=== PATIENT | male | born 1945 | race Caucasian/White ===

== ENCOUNTER 2020-08-26 10:09 | Inpatient (IN) | payer OTHER ==
[~2020-08-26] VITALS: Ht 193 cm; Wt 84.1 kg
[2020-08-26] VITALS (7 sets, daily range): BP systolic 122–157; BP diastolic 59–79; BMI 22.5
[~2020-08-26 10:09] MED LIST: ELIQUIS5 MG PO; MULTIPLE VITAMI1 TA1 PO
[2020-08-26] MEDS ORDERED: AMOXICILLIN500 M1 PO (10:14)
[2020-08-26 10:42] LABS: INR 1.01 (0.85-1.17); PROTIME 12.3 SECONDS (11.6-15.0)
[2020-08-26 10:52] LABS: CALC OSMOLALITY 279 mosm/kg (275-300); CALCIUM 8.9 mg/dL (8.5-10.1); CARBON DIOXIDE 30.4 mmol/L (21.0-32.0); CHLORIDE - SERUM 104 mmol/L (98-107); CREATININE - SERUM 1.2 mg/dL (0.6-1.3); GLUCOSE 94 mg/dL (74-106); POTASSIUM - SERUM 4.8 mmol/L (3.5-5.1); SODIUM 140 mmol/L (136-145); UREA NITROGEN 16 mg/dL (7-18); eGFR NON AFRICAN AMERICAN 63 mL/min (90-120)
[2020-08-26 11:03] LABS: BASOPHILS 0.3 % (0-2); EOSINOPHILS 6.3 % (0-7); HEMATOCRIT 43.7 % (42.0-54.0); HEMOGLOBIN 14.8 g/dL (13.5-17.5); LYMPHOCYTE ABS# 1.88 10x3/uL (1.32-3.57); MCH 33.4 pg (26.0-34.0); MCHC 33.9 g/dL (31.0-37.0); MCV 98.6 fL (80.0-100.0); MEAN PLATELET VOLUME 10.4 fL (7.4-10.4); NEUTROPHIL ABS# 3.53 10x3/uL (1.78-5.38); NEUTROPHILS 54.4 % (40-80); PLATELET COUNT 175 10x3/uL (130-400); RBC 4.43 10x6/uL (4.20-6.10); RDW 12.8 % (11.5-14.5); WBC 6.5 10x3/uL (4.8-10.8)
[2020-08-26 11:08] LABS: ALBUMIN 3.8 g/dL (3.4-5.0); ALKALINE PHOSPHATASE 92 U/L (30-120); ALT (SGPT) 24 U/L (10-68); BILIRUBIN - TOTAL 0.57 mg/dL (0.2-1.3); CKMB 1.1 U/L (0.0-3.6); CREATINE KINASE 105 UL (21-232); MAGNESIUM - SERUM 1.9 mg/dL (1.8-2.4); PROTEIN - SERUM 7.2 g/dL (6.4-8.2); THYROID STIMULATING HORMONE 1.83 uIU/mL (0.36-3.74); TROPONIN-I < 0.017 ng/mL (0.000-0.060)
--- NOTE | 2020-08-26 14:04 | NUR ---
Arrived to unit from CT in stable condition via stretcher, oriented to unit, oriented to room, oriented to bed controls, currently lying in bed, awake/alert/oriented, T/R self ad ledy, cont of B/B with BRPs per self ad ledy, denies pain/other discomfort at this time, spouse at bedside, call light/phone/water within reach, no s/s of acute distress observed.
--- NOTE | 2020-08-26 14:55 | NUR ---
Called and notified Dr. Flores of consult, states will see after office closes today.
--- NOTE | 2020-08-26 19:30 | NUR ---
PT IN BED, AAO X 4, RESP EVEN AND UNLABORED, NO DISTRESS NOTED, CL IN REACH, SR UP X 2.
--- NOTE | 2020-08-27 03:41 | NUR ---
I have reviewed this patient and I concur with the Shift Assessment completed by the Licensed Practical Nurse today this shift.
[2020-08-27 06:22] LABS: APTT 28.3 SECONDS (22.8-39.4)
[2020-08-27 06:33] LABS: BASOPHILS 0.2 % (0-2); EOSINOPHILS 8.6 % (0-7); HEMATOCRIT 40.1 % (42.0-54.0); HEMOGLOBIN 13.5 g/dL (13.5-17.5); IMMATURE GRANULOCYTES 0.2 % (0-5); LYMPHOCYTE ABS# 1.26 10x3/uL (1.32-3.57); MCH 33.1 pg (26.0-34.0); MCHC 33.7 g/dL (31.0-37.0); MCV 98.3 fL (80.0-100.0); MEAN PLATELET VOLUME 10.6 fL (7.4-10.4); MONOCYTES 11.8 % (2-11); NEUTROPHIL ABS# 2.89 10x3/uL (1.78-5.38); NEUTROPHILS 55.2 % (40-80); PLATELET COUNT 170 10x3/uL (130-400); RBC 4.08 10x6/uL (4.20-6.10); RDW 12.7 % (11.5-14.5); WBC 5.2 10x3/uL (4.8-10.8)
[2020-08-27 06:46] LABS: ALBUMIN 3.1 g/dL (3.4-5.0); ANION GAP 13.6 mmol/L (8-16); BILIRUBIN - TOTAL 0.79 mg/dL (0.2-1.3); CALCIUM 8.1 mg/dL (8.5-10.1); CARBON DIOXIDE 25.3 mmol/L (21.0-32.0); CREATININE - SERUM 1.1 mg/dL (0.6-1.3); PROTEIN - SERUM 6.2 g/dL (6.4-8.2)
[2020-08-27 06:49] LABS: POTASSIUM - SERUM 3.9 mmol/L (3.5-5.1)
[2020-08-27 07:24] LABS: INR 1.16 (0.85-1.17); PROTIME 13.8 SECONDS (11.6-15.0)
--- NOTE | 2020-08-27 07:40 | NUR ---
Lying in bed, awake/alert/oriented, T/R self ad ledy, cont of B/B with BRPs per self ad ledy, denies pain/other discomfort at this time, call light/phone within reach, remains NPO for procedure, no s/s of acute distress observed.
[2020-08-27 08:25] VITALS: BP 139/67
[2020-08-27 12:23] VITALS: BP 140/68
--- NOTE | 2020-08-27 14:15 | EC ---
PATIENT:DENIS HERMOSILLO DATE OF SERVICE: 08/26/20 SEX: M MEDICAL RECORD: [id number] DATE OF : 41 LOCATION:D.M2 D.211 AGE OF PATIENT: 74 ADMISSION DATE: 08/26/20 REFERRING PHYSICIAN: INTERPRETING PHYSICIAN: MIGUEL HARRINGTON MD ECHOCARDIOGRAM REPORT ECHO CHARGES 4 ECHO COMPLETE Date: 08/27/20 CLINICAL DIAGNOSIS: TIA ECHOCARDIOGRAPHIC MEASUREMENTS (adult normal given) AC root (d.<3.7cm) 3.2 cm LV Septum d (<1.2 cm> 0.9 cm Valve Excursion 1.9 cm LV Septum (systole) 1.5 cm Left Atria (s.<4.0cm> 4.5 cm LVPW d(<1.2cm) 1.0 cm RV (d.<2.3cm) 3.2 cm LVPW (sytole) 1.3 cm LV diastole(<5.6CM) 5.5 cm MV E-F(>70mm/sec) cm LV systole 3.7 cm LVOT Diameter 1.9 cm MV exc.(>10mm) 2.0 cm Est.ejection fraction (50-75%) % DOPPLER: LVIT cm/sec A 67 cm/sec E 54 cm/sec LA cm/sec RVSP 34 mmHg LVOT 87 cm/sec AOP1/2T m/s Asc. Ao 13.0 cm/sec RVOT 49 cm/sec RA cm/sec PA 91 cm/sec AV Gradient Peak 6.8 mmHg AV Mean 3.6 mmHg AV Area 1.9 cm MV Gradient Peak 2.4 mmHg MV Mean 1.3 mmHg MV Area cm COMMENTS: Vacuum Frame Operator: Lissa ROSA Cook Vegetable: 3 Dr. Littlejohn TAPE# Pericardial Effusion N DATE OF SERVICE: Adequate 2D, color flow imaging, spectral Doppler, and M-Mode. FINDINGS: No LVH. LV internal dimension is normal. Wall motion is normal. EF is greater than or equal to 55%. Aortic valve is tricuspid. No evidence of stenosis by Doppler interrogation. There is mild AI by color flow imaging. Left atrium is dilated at 4.5 cm. Mitral valve shows no prolapse. Trace MR. Right side is grossly normal. Mild TR. ECHOCARDIOGRAM REPORT [id number] DENIS HERMOSILLO TRANSINT:[id number] Voice Confirmation ID: [id number] DOCUMENT ID: [id number] MIGUEL HARRINGTON MD at 1415 CC: [id number] DICTATION DATE: 08/27/20 1251 DRAFTER HEATING AND VENTILATING: 08/27/20 1327 ADM IN [facility] [address] [id number]
[2020-08-27 20:00] VITALS: BP 114/61
[2020-08-27 23:49] VITALS: BP 113/55
[2020-08-28 04:53] VITALS: BP 114/62
--- NOTE | 2020-08-28 06:11 | NUR ---
PTS HEART RATE WENT LOW AT 41 DURING THE NIGHT WHILE HE WAS SLEEPING. NO S/S OF DISTRESS. REMAINED SINUS RHYTHM PER TELEMTRY TECH. DENIES NEEDS. NO WEAKNESS OR DROOPING OBSERVED. CL IN REACH.
--- NOTE | 2020-08-28 07:40 | NUR ---
Lying in bed, awake/alert/oriented, T/R self ad ledy, cont of B/B with BRPs per self ad ledy, denies pain/other discomfort at this time, call light/phone/water within reach, no s/s of acute distress observed.
[2020-08-28 08:03] VITALS: BP 121/58
--- NOTE | 2020-08-28 09:03 | HP ---
PATIENT: DENIS HERMOSILLOTON MEDICAL RECORD: [id number] ACCOUNT: [id number] LOCATION:D.[facility].2116 : 41 ADMISSION DATE: 08/27/20 PCP: No PCP HISTORY AND PHYSICAL EXAMINATION DATE OF ADMISSION: 08/26/2020. CHIEF COMPLAINT: Transient dysarthria. HISTORY OF PRESENT ILLNESS: This is a 74-year-old quite healthy male who was talking on the phone this morning at his home when his was in another room and heard his voice change. She noted that he had slurred speech and had garbled speech. The person he was talking to did not understand what he was saying. He also noted some left arm numbness and tingling without weakness. The states this all lasted less than 5 minutes and his symptoms resolved. She went ahead and brought him to the ER where lab work was essentially unremarkable. 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 Further workup included MRI of the brain without contrast showing a small subacute infarct in the left parietal and temporal lobes and mxujfrww-hl-oovmvlv infarct in the right temporal lobe. There was no hemorrhage. He is admitted for further evaluation of his strokes. PAST MEDICAL HISTORY: In January 2016, he had a right lower extremity DVT and PE, which was treated and resolved. PAST SURGICAL HISTORY: Arm surgery. The patient just had a Medicare wellness done in my office on 08/18/2020 and his total cholesterol then was 165, his LDL was 113, HDL was 43 and triglycerides were 98. HOME MEDICATIONS: Meclizine p.r.n., multivitamin once a day. DRUG ALLERGIES: None. HABITS: Never smoked. No alcohol or drugs. FAMILY HISTORY: Father at 86. He had colon cancer. Mother is as well. REVIEW OF SYSTEMS: GENERAL: No major weight changes. HEENT: No particular sinus or allergy problems. RESPIRATORY: No history of asthma, emphysema, cough, wheeze, shortness of breath. He had a PE 4-1/2 years ago. CARDIAC: No trouble there. GASTROINTESTINAL: No diarrhea, constipation, heartburn. GENITOURINARY: He has a history of elevated PSA, followed by Urology. MUSCULOSKELETAL: No significant arthritic aches and pains. NEUROLOGIC: No history of seizures. No symptoms of previous strokes. No headaches. PSYCHIATRIC: Denies depression or melancholia. PHYSICAL EXAMINATION: VITAL SIGNS: Temperature 97.2, pulse 57, respirations 16, blood pressure HISTORY AND PHYSICAL [id number] DENIS HERMOSILLO 122/74, O2 sat 97%. GENERAL: He is awake and alert. He does not appear to be in acute distress. SKIN: Warm and dry. HEENT: Grossly within normal limits. NECK: Supple. No JVD or bruit. HEART: Regular rate and rhythm without murmur. LUNGS: Clear. ABDOMEN: Soft, flat, nontender. EXTREMITIES: No edema. NEUROLOGIC: Intact. No focal motor or sensory deficits noted at this time. LABORATORY DATA: CBC with a white count of 6500, hemoglobin 14.8, hematocrit 43.7, platelets number 175,000. Basic metabolic panel, sodium 140, potassium 4.8, chloride 104, CO2 of 30.4, BUN 16, creatinine 1.2, glucose 94, calcium 8.9. Liver functions are all normal. INR 1.01. Magnesium 1.9. Troponin less than 0.017. TSH 1.83. Chest x-ray shows no acute abnormality. 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 MRI of the brain shows small subacute infarction in the left parietal and temporal lobes. There was a gyszlpkj-ts-ygzjwed infarct in the right temporal lobe. No hemorrhage. ASSESSMENT: 1. Transient dysarthria and left arm tingling. 2. Embolic stroke. PLAN: CTA has been ordered. Echocardiogram has been ordered. Dr. Flores has been consulted. We will place him on telemetry. Other tests or procedures as warranted. TRANSINT:[id number] Voice Confirmation ID: [id number] DOCUMENT ID: [id number] HIREN DICK MD at 0903 CC: [id number] DICTATION DATE: 08/26/202141 INJECTION MOLDING MACHINE SETTER: 08/27/20 0015 ADM IN [place] [address] [id number] [place] [id number]
[2020-08-28 09:43] VITALS: Ht 193 cm; Wt 84.1 kg
[2020-08-28 12:01] VITALS: BP 131/56
--- NOTE | 2020-08-28 13:48 | NUR ---
IN PATIENT CHART HELPING WITH DISCHARGE.
[2020-08-28] MEDS ORDERED: BAYER CHEWABLE81 MG PO (15:10)
[2020-08-28] MEDS ORDERED: PLAVIX75 MG PO (15:10)
[2020-08-28] MEDS ORDERED: ELIQUIS5 MG PO (15:13)
--- NOTE | 2020-08-28 15:30 | NUR ---
Provided discharge instructions/education to which pt and spouse voiced understanding, discontinued IV access/cardiac telemetry monitoring.
--- NOTE | 2020-08-28 15:50 | NUR ---
Discharged home to self care in stable condition via ambulation accompanied by spouse, no s/s of acute distress observed.
--- NOTE | 2020-08-30 17:22 | MORECARE ---
CASE MANAGEMENT DISCHARGE SUMMARY PATIENT: DENIS HERMOSILLO UNIT: [id number] ADM DATE: 08/27/20 AGE: 74 : 43 SEX: M ROOM/BED: D.[facility] AUTHOR: ALEJANDRO,DOC PHYSICIAN: REFERRING PHYSICIAN: HIREN DICK MD DATE OF SERVICE: 08/30/20 Case Management Discharge Planning Summary DCP REVIEW SUMMARY ANTICIPATED D/C DATE: EXPECTED LOS : 0 CASE STATUS: DCP Complete INITIAL REVIEW: 08/30/2020 INITIAL REVIEWER: Abbie Whitney FINAL DISCHARGE DISPOSITION: 01 : Home or Self Care (Routine Discharge) FINAL REVIEWER: Abbie Whitney FINAL REVIEW DATE: 08/30/2020 DCP Focus Questions & Answers QUESTION: ANSWER : PATIENT: DENIS HERMOSILLO ENCOUNTER: [id number] MEDICAL RECORD#: [id number] ADMISSION DATE: 08/27/2020 DISCHARGE DATE: 08/28/2020 ATTENDING MD: HIREN MANNING : AGE: 74 MARITAL STATUS: M DC PLAN ID: [id number] FACILITY: [facility] PRINTED ON: 08/30/20 17:22 CT All edits/amendments must be made on the electronic document DICTATION DATE: 08/30/201721 TRACK SURFACING MACHINE OPERATOR: PASCUAL 08/30/201721 RPT#: [id number] DC DATE:08/28/20 STATUS: DIS IN [facility] [address] [place] [address] END OF REPORT
== END 2020-08-28 15:50 | disposition home or self-care (01) | DRG 65 ==
LOC: D.ER 10:09 → D.M2 11:35 → OBSVTIME 11:35 → D.M2 11:35
PROVIDERS: Family Medicine; ADMIT Family Medicine; ATTEND Family Medicine
DX: I63.40 Cerebral infarction due to embolism of unspecified cerebral artery (principal); G45.9 Transient cerebral ischemic attack, unspecified; I69.322 Dysarthria following cerebral infarction; Z86.718 Personal history of other venous thrombosis and embolism; Z79.01 Long term (current) use of anticoagulants; Z86.711 Personal history of pulmonary embolism

== ENCOUNTER 2020-09-03 12:05 | Day surgery (SDC) | payer OTHER ==
[~2020-09-03] VITALS: Ht 193 cm; Wt 86.3 kg
--- NOTE | ~2020-09-03 | HEMODYNAMI ---
PATIENT:DENIS HERMOSILLO MEDICAL RECORD: [id number] : 41 LOCATION:[facility] ADMISSION DATE: 09/03/20 Generatedon:114:21 Patient name: DENIS HERMOSILLO Patient #: [id number] SSN: [id number] : 1945 Date of study: 09/03/2020 Page: Of Hemodynamic Procedure Report Patient Data Patient Demographics Procedure consent was obtained First Name: DENIS Gender: Male Last Name: JAIMEE : 1945 [facility] Initial: DYLAN Age: 74 year(s) Patient #: [id number] Race: SSN: [id number] Additional ID: [id number] Contact details Address: [address] [place] [address] State: [place] City: [facility] Zip code: [address] Past Medical History Allergies: No known allergies Admission Admission Data Admission Date: 09/03/2020 Admission Time: 12:05 Arrival Date: 09/03/2020 Arrival Time: 0:00 Admit Source: Other Insurance Payor: Private health insurance [facility] #: [id number] Height (in.): 76 BSA: 2.17 (m2) Height (cm.): 193.04 BMI: 23.16 (kg/m2) Weight (lbs.): 190.28 Weight (kg.): 86.31 Lab Results Lab Result Date: 09/03/2020 Lab Result Time: 0:00 Biochemistry Name Units Result Min Max BUN mg/dl 21 --(----)-* 7 18 Creatinine mg/dl 1.2 --(---*)-- 0.6 1.3 eGFR ml/min 63 *-(----)-- 90 120 NONAFRICAN CBC Name Units Result Min Max Hematocrit % 41 -*(----)-- 42 54 Hemoglobin g/dl 13.9 --(*---)-- 13.5 17.5 Procedure Procedure Types Cath Procedure Diagnostic Procedure BEATRIS Procedure Description Procedure Date Procedure Date: 09/03/2020 Procedure Start Time: 0:00 Procedure Staff Name Function Leodan Dill MD Performing Physician Amanda Mendes Direct Support Staff Janet Kelly REGISTERED NURSE Additional personnel Pratik Lama RN Nurse Bharati Landry RT Monitor Procedure Data Procedure Complications No complications Procedure Medications Medication Administration Route Dosage Oxygen etCO2 Nasal cannula 2 l/min 0.9% NaCl I.V. 100 ml/hr Refer to Anesthesia Notes for Sedation Medications Hurricaine [place] P[address] Sprays Hemodynamics Rest BSA: 2.17 (m2) HGB: 13.9 (g/dl) O2 Consumption: Estimated: 230.31 (ml/min) O2 Consumption indexed: Estimated:106.13 (ml/min/m) Heart Rate: 47 (bpm) Snapshots Pre Cath Intra NCS Post Cath Vital Signs Time Heart Resp SPO2 etCO2 NIBP (mmHg) Rhythm Pain Sedation Rate (ipm) (%) (mmHg) Status Level (bpm) 14:01:56 73 17 98 0 152/94(128) NSR 0 (11) 10(A) , No pain 14:06:10 51 12 100 9.7 82/64(75) NSR 0 (11) 10(A) , No pain 14:10:58 45 19 100 10.5 113/67(96) NSR 0 (11) 9(A) , No pain 14:15:10 44 23 100 15.7 119/66(91) NSR 0 (11) 10(A) , No pain 14:19:10 99 15 No Cuff NSR 0 (11) 10(A) , No pain 14:19:31 9 Aborted NSR 0 (11) 10(A) , No pain Medications Time Medication Route Dose Verified Delivered Reason Notes Effectiv eness by by 14:03:40 Oxygen etCO2 2 Leodan Christie used for Nasal l/min St Denis Lama RN procedure cannula 14:04:06 0.9% NaCl I.V. 100 Leodan Christie Per ml/hr [facility] Denis Lama RN physician 14:04:28 Refer to Leodan Christie Anesthesia [facility] Denis Lama RN Notes for MD Sedation Medications 14:04:37 Hurricaine [address] Leodan Christie Per [place] Sprays St Denis guevara MD Procedure Log Time Note 13:36:28 Informed consent obtained and on chart 13:36:46 Diagnostic Cath Status : Elective 13:38:11 Arrival Date: 09/03/2020 12:00:00 AM 13:38:12 Admit Source: Other 13:38:15 Insurance Payor : Private health insurance 13:39:15 Lab Result : Creatinine 1.2 mg/dl 13:39:15 Lab Result : BUN 21 mg/dl 13:39:15 Lab Result : Hemoglobin 13.9 g/dl 13:39:15 Lab Result : eGFR NONAFRICAN 63 ml/min 13:39:15 Lab Result : Hematocrit 41 % 13:39:22 Patient Height : 76 inches 13:39:27 Patient Weight : 190.28 lbs 13:39:40 ACC Patient presents with Stable Angina CCS Anginal Class 2--Slight limitation of ordinary activity. 13:39:43 Procedure Status BEATRIS. 13:39:50 Time tracking: Regular hours (M-F 7:00 - 5:00) 13:39:54 Plan of Care:Hemodynamics will remain stable., Cardiac rhythm will remain stable., Comfort level will be maintained., Respiratory function will remain adequate., Patient/ family verbilizes understanding of procedure., Procedure tolerated without complication., Recovers from procedure without complications.. 13:40:24 H&P Date Dictated: 09/03/2020 New H&P dictated by physician.. 13:40:27 Family in waiting room. 13:40:28 Patient NPO since Midnight. 13:40:34 Patient allergic to No known allergies 13:40:40 Lab results completed and on chart. 13:40:43 Stress Test: no; N/A ? 13:40:44 Alarms reviewed by R. N. 13:40:45 Sharps counted by scrub and verified by R.N. 13:51:08 Pratik Lama RN sent for patient. Start room use. 13:57:08 Patient received from Pre/Post Procedure Room to CCL 2 Alert and oriented. Tansferred to table in Supine position. 13:57:09 Warm blankets applied, and atul hugger turned on for patient comfort. 13:57:10 Correct patient and procedure confirmed by team. 13:57:11 ECG and BP/O2 sat monitors applied to patient. 13:57:36 Pre-procedure instructions explained to patient. 13:57:36 Pre-op teaching completed and patient verbalized understanding. 13:57:38 Is the patient allergic to Iodine/contrast media? No. 13:57:40 Was the patient premedicated? No 13:58:00 Janet Kelly CRNA present and monitoring patient for TIVA. 13:58:31 Is patient on blood thinner?Yes 13:58:35 ACC The patient was administered the following blood thiners within the last 24 hours: Eliquis 13:58:38 Patient diabetic? No. 13:58:40 If diabetic: On Metformin? N/A 13:58:41 ----Pre-sedation anethsthesia assessment.---- 13:58:43 Previous problem with sedation/anesthesia? No ? 13:58:44 Snore? Yes 13:59:10 Sleep apnea? Unknown 13:59:11 Deviated septum? No 13:59:13 Opens mouth fully? Yes 13:59:13 Sticks out tongue? Yes 13:59:16 Airway obstruction? No ? 13:59:19 Dentures? No ? 13:59:25 Patient pain scale 0/10 ?. 13:59:30 IV patent on arrival in left antecubital with 0.9% NaCl at [facility]. 13:59:57 Full Disclosure recording started 14:00:53 Vital chart was started 14:02:08 Baseline sample Acquired. 14:03:40 Oxygen 2 l/min etCO2 Nasal cannula was administered by Pratik Lama RN; used for procedure; Verbal order read back and verified. 14:03:49 Rhythm: sinus bradycardia 14:03:52 --------ALL STOP TIME OUT------ 14:03:53 Final Timeout: patient, procedure, and site verified with staff and physician. All members of the team are in agreement. 14:03:57 Fire Safety Assessment: A--An alcohol-based skin anteseptic being used preoperatively., C--Open oxygen or nitrous oxide is being used., D--An ESU, laser, or fiber-optic light is being used. 14:04:00 Physical assessment completed. ASA score P 2 - A patient with mild systemic disease as per Leodan Dill MD. 14:04:06 0.9% NaCl 100 ml/hr I.V. was administered by Buffie Lama RN; Per physician; Verbal order read back and verified. 14:04:12 2) 60-89 Mildly reduced kidney function, and other findings (as for stage 1) point to kidney disease. 14:04:16 Sedation plan: TIVA Medication:Propofol 14:04:28 Refer to Anesthesia Notes for Sedation Medications was administered by Pratik Lama RN; ; Verbal order read back and verified. 14:04:37 Hurricaine [place] 1 Sprays P.O. was administered by Pratik Lama RN; Per physician; Verbal order read back and verified. 14:06:31 BEATRIS 14:06:32 Amanda Mendes Slabber Light present for BEATRIS. 14:06:33 BEATRIS started. 14:12:00 BEATRIS completed. 14:12:20 Procedure ended.(Physican Out) 14:12:40 Post-procedure physical assessment completed. ASA score P 2 - A patient with mild systemic disease as per Leodan Dill MD. 14:12:44 Post procedure rhythm: unchanged. 14:12:46 Post procedure instruction explained to patient.Patient verbalizes understanding. 14:12:47 Patient needs reinforcement of post procedure teaching. 14:12:56 Procedure type changed to Cath procedure, Diagnostic procedure, BEATRIS 14:13:09 Procedure and supply charges have been captured, reviewed, submitted and are correct. 14:13:12 Procedure Complication : No complications 14:13:45 BEATRIS Findings: no vegetation noted 14:13:48 BEATRIS Findings: other (see MD operative note) 14:13:52 Operative report dictated upon procedure completion. 14:13:53 See physician's report for complete and final results. 14:13:55 Report given to Pre/Post Procedure Room. 14:13:57 Patient transfered to Pre/Post Procedure Room with Stretcher. 14:14:05 End room use (Document Last) 14:21:04 Vital chart was stopped Signature Audit [place] Stage Time Signature Unsigned Intra-Procedure 09/03/2020 Bharati Landry 2:14:31 PM RT(R) Intra-Procedure 09/03/2020 Pratik Lama RN 2:15:00 PM Intra-Procedure 09/03/2020 Leodan Bhatt 2:21:02 PM Denis NEWBERRY Signatures Performing Physician : Signature : Leodan Dill MD Date : Time : Nurse : Buffie Lama RN Signature : Date : Time : Monitor : Bharati Young Signature : RT Date : Time : [address] [place] [address]
[~2020-09-03 12:05] MED LIST changes: +AMOXICILLIN500 M1 PO; +BAYER CHEWABLE81 MG PO; +PLAVIX75 MG PO
[2020-09-03] MEDS ORDERED: BETAPACE 80 MG80 MG PO (12:23)
[2020-09-03 12:51] LABS: BASOPHILS 0.3 % (0-2); EOSINOPHILS 5.7 % (0-7); HEMOGLOBIN 13.9 g/dL (13.5-17.5); IMMATURE GRANULOCYTES 0.2 % (0-5); LYMPHOCYTE ABS# 1.78 10x3/uL (1.32-3.57); LYMPHOCYTES 27.5 % (15-50); MCH 33.3 pg (26.0-34.0); MCHC 33.9 g/dL (31.0-37.0); MCV 98.3 fL (80.0-100.0); MEAN PLATELET VOLUME 10.4 fL (7.4-10.4); NEUTROPHIL ABS# 3.71 10x3/uL (1.78-5.38); NEUTROPHILS 57.3 % (40-80); PLATELET COUNT 174 10x3/uL (130-400); RBC 4.17 10x6/uL (4.20-6.10); RDW 12.7 % (11.5-14.5); WBC 6.5 10x3/uL (4.8-10.8)
[2020-09-03 13:00] VITALS: BP 132/86; Ht 193 cm; Wt 86.3 kg
[2020-09-03 13:00] LABS: CALCIUM 8.6 mg/dL (8.5-10.1); CARBON DIOXIDE 31.5 mmol/L (21.0-32.0); CREATININE - SERUM 1.2 mg/dL (0.6-1.3); POTASSIUM - SERUM 4.5 mmol/L (3.5-5.1)
--- NOTE | 2020-09-03 14:30 | NUR ---
PT ARRIVED BY STRETCHER. PLACED ON MONITORS. ASSESSMENT COMPLETED. VSS AT THIS TIME. FAMILY AT BEDSIDE. PT NPO AT THIS TIME.
--- NOTE | 2020-09-03 14:45 | NUR ---
PT RESTING COMFORTABLY. VSS. STILL NPO. CALL LIGHT WITHIN REACH.
--- NOTE | 2020-09-03 15:15 | NUR ---
PT RESTING COMFORTABLY. VSS AT THIS TIME. CALL LIGHT WITHIN REACH. NO NEEDS.
--- NOTE | 2020-09-03 15:30 | NUR ---
PIV D/C'D WITH CATH TIP INTACT. TOLERATED WELL. PT INSTRUCTED TO GET UP AND DRESSED AT THIS TIME. FAMILY AT BEDSIDE TO ASSIST. DISCUSSED DISCHARGE INSTRUCTIONS WITH PT. HE VOICED UNDERSTANDING. THEY VOICED UNDERSTANDING OF MED CHANGES AND PT GIVEN PILL SPLITTER TO HALF THE SOTALOL TABS.
--- NOTE | 2020-09-03 15:35 | NUR ---
PT AMBULATED TO RESTROOM. VOIDED WITHOUT DIFFICULTY. STEADY GAIT NOTED. PT TAKEN TO VEHICLE BY WHEELCHAIR. NO S/S OF DISTRESS NOTED. ALL BELONGINGS AND PAPERWORK IN HAND.
--- NOTE | 2020-09-07 16:09 | TEE ---
PATIENT:DENIS HERMOSILLO MEDICAL RECORD: [id number] LOCATION:D.[facility] AGE OF PATIENT: 74 ADMISSION DATE: 09/03/20 SEX: M REFERRING PHYSICIAN: INTERPRETING PHYSICIAN: MIGUEL HARRINGTON MD TRANSESOPHAGEAL ECHOCARDIOGRAM Date: 09/03/20 BEATRIS CHARGE Y INDICATIONS: TIA PREMEDICATIONS: PATIENT'S RESPONSE PROCEDURE DOPPLER MEASUREMENTS: LVIT LA PA RA LVOT RVOT Asc. Ao AV Gradient Peak AV Mean AV Area MV Gradient Peak MV Mean MV Area INTERPRETATION: Doppler: 2-D: COLOR FLOW DOPPLER NORMAL SALINE STUDY: MISCELLANOUS: DIAGNOSIS: PLAN: Family Living Educator:3 Dr. Littlejohn Service Aide: Lissa ROSA COMMENTS: DATE OF SERVICE: 09/03/2020 PROCEDURE: Transesophageal note. After general sedation via TIVA via anesthesia, transesophageal Omniplane probe placed in the distal esophagus and proximal stomach without difficulty. FINDINGS: As follows: No LVH. LV internal dimensions are normal. Wall motion normal. EF greater than or equal to 55%. Aortic valve is tricuspid with good TRANSESOPHAGEAL ECHOCARDIOGRAM REPORT [id number] DENIS HERMOSILLO valve excursion. Trace AI by color flow imaging. Left atrium is normal. Left atrial appendage is well visualized with good contractility. No evidence of thrombus. Mitral valve appears normal with no prolapse. Trace MR. Right-sided chamber grossly normal. Trace TR. During the procedure, the patient was monitored continuously with pulse oximetry, telemetry, and noninvasive blood pressure monitoring. No evidence of embolic source. TRANSINT:[id number] Voice Confirmation ID: [id number] DOCUMENT ID: [id number] at 1609 CC: [id number] DICTATION DATE: 09/03/20 1422 MATERIAL STRESS TESTER: 09/04/20 0311 [facility] 09/03/[address] [place] [id number] [place] [id number]
== END 2020-09-03 15:35 | disposition home or self-care (01) ==
LOC: D.CATH 12:05
PROVIDERS: ATTEND Internal Medicine Interventional Cardiology
DX: I63.9 Cerebral infarction, unspecified (principal)

== ENCOUNTER 2020-09-14 07:36 | Day surgery (SDC) | payer OTHER ==
[~2020-09-14] VITALS: Ht 193 cm; Wt 85.5 kg
--- NOTE | ~2020-09-14 | HEMODYNAMI ---
PATIENT:DENIS HERMOSILLO MEDICAL RECORD: [id number] : 41 LOCATION:DVenusABDON ADMISSION DATE: 09/14/20 Generatedon:111:35 Patient name: DENIS HERMOSILLO Patient #: [id number] SSN: [id number] : 1945 Date of study: 09/14/2020 Page: Of Hemodynamic Procedure Report Patient Data Patient Demographics Procedure consent was obtained First Name: DENIS Gender: Male Last Name: JAIMEE : 1945 [facility] Initial: DYLAN Age: 74 year(s) Patient #: [id number] Race: SSN: [id number] Additional ID: [id number] Contact details Address: [address] [place] [address] State: [place] City: [facility] Zip code: [address] Past Medical History Allergies: No known allergies Admission Admission Data Admission Date: 09/14/2020 Admission Time: 7:36 Arrival Date: 09/14/2020 Arrival Time: 0:00 Admit Source: Other Insurance Payor: Private health insurance [facility] #: [id number] Height (in.): 76 BSA: 2.16 (m2) Height (cm.): 193.04 BMI: 22.95 (kg/m2) Weight (lbs.): 188.58 Weight (kg.): 85.54 Lab Results Lab Result Date: 09/14/2020 Lab Result Time: 0:00 Biochemistry Name Units Result Min Max BUN mg/dl 19 --(----)*- 7 18 Creatinine mg/dl 1.5 --(----)-* 0.6 1.3 eGFR ml/min 48 *-(----)-- 90 120 NONAFRICAN CBC Name Units Result Min Max Hematocrit % 44.8 --(*---)-- 42 54 Hemoglobin g/dl 15.5 --(-*--)-- 13.5 17.5 Procedure Procedure Types Cath Procedure Diagnostic Procedure [facility] w/Coronaries Sedation Charges Moderate Sedation 25-39 minutes PCI Procedure Coronary Stent Coronary Stent Initial Hemochron ACT Test Procedure Description Procedure Date Procedure Date: 09/14/2020 Procedure Start Time: 10:54 Procedure End Time: 11:26 Procedure Staff Name Function Nini Frank RT Scrub Pratik Lama RN Nurse Leodan Dill MD Performing Physician Bharati Landry RT Monitor Procedure Data Cath Procedure Fluoroscopy Diagnostic fluoroscopy Total fluoroscopy Time: 7.2 time: 7.2 min min Diagnostic fluoroscopy Total fluoroscopy dose: 544 dose: 544 mGy mGy Contrast Material Contrast Material Type Amount (ml) Isovue 370 141 Entry Location Entry Primary Successful Side Size Upsize Upsize Entry Closure Succes sful Closure Location (Fr) 1 (Fr) 2 (Fr) Remarks Device Remarks Femoral Right 5 Fr 6 Fr Exoseal artery Short Estimated blood loss: 10 ml Diagnostic catheters Device Type Used For End Catheter Placement MULTIPACK JL 4.0 5Fr Procedure catheter MULTIPACK 3DRC 5Fr Procedure catheter MULTIPACK Pigtail 5 Fr Procedure catheter Procedure Complications No complications Procedure Medications Medication Administration Route Dosage 0.9% NaCl I.V. 100 ml/hr Oxygen etCO2 Nasal cannula 2 l/min Lidocaine 2% S.C. 20 Heparin Flush Bag added to field 2 bags (1000units/500ml NS) Versed I.V. 0.5 mg Fentanyl I.V. 25 mcg Heparin Bolus I.V. 3000 units Versed I.V. 0.5 mg Fentanyl I.V. 25 mcg Heparin Bolus I.V. 2000 units Hemodynamics Rest BSA: 2.16 (m2) HGB: 15.5 (g/dl) O2 Consumption: Estimated: 229.4 (ml/min) O2 Con sumption indexed: Estimated:106.2 (ml/min/m) Heart Rate: 47 (bpm) Pressure Samples Time Site Value (mmHg) Purpose Heart Use Rate(bpm) 11:00 LV 72/-4,-3 Snapshot 47 Gradients Valve Time Site Site Mean SEP/DFP Peak To Heart Use 1 2 (mmHg) (sec/min) Peak Rate (mmHg) (bpm) Aortic 11:01 LV AO 47 Snapshots Pre Cath Intra NCS Post Cath Vital Signs Time Heart Resp SPO2 etCO2 NIBP Rhythm Pain Sedation Rate (ipm) (%) (mmHg) (mmHg) Status Level (bpm) 10:42:40 48 11 95 31.4 121/63(93) SB 0 (11) 10(A) , No pain 10:46:56 46 16 95 0 116/64(74) SB 0 (11) 10(A) , No pain 10:51:10 47 13 98 32.2 121/62(79) SB 0 (11) 10(A) , No pain 10:55:28 47 10 97 22.4 108/58(76) SB 0 (11) 10(A) , No pain 11:00:27 54 11 97 24 Measuring SB 0 (11) 9(A) , No pain 11:00:35 55 10 98 26.2 119/62(93) SB 0 (11) 9(A) , No pain 11:04:51 52 12 98 36 122/62(92) SB 0 (11) 9(A) , No pain 11:09:05 49 10 97 0 112/58(76) SB 0 (11) 9(A) , No pain 11:13:19 49 11 98 0 119/61(83) SB 0 (11) 9(A) , No pain 11:17:33 48 12 98 0 117/68(88) SB 0 (11) 10(A) , No pain 11:21:49 51 13 98 36.7 117/61(80) SB 0 (11) 10(A) , No pain 11:26:03 48 13 98 32.2 120/67(95) SB 0 (11) 10(A) , No pain Medications Time Medication Route Dose Verified Delivered Reason Notes Effectiveness by by 10:33:05 0.9% NaCl I.V. 100 Buffie Buffie used for ml/hr Daina Lama RN procedure 10:33:27 Oxygen etCO2 2 Buffie Buffie used for Nasal l/min Daina Lama RN procedure cannula 10:33:59 Lidocaine 2% S.C. 20ml Buffie Leodan for local vial Daina Dill anesthetic 10:34:40 Heparin Flush added 2 Buffie Leodan used for Bag to bags Daina Dill procedure (1000units/500ml field [place] NS) 10:54:39 Versed I.V. 0.5 Buffie Buffie for sedation mg Daina Lama RN 10:54:46 Fentanyl I.V. 25 Buffie Buffie for sedation mcg Daina Lama RN 11:06:10 Heparin Bolus I.V. 3000 Leodan Christie for verif ied units [facility] Lama RN anticoagulation with dr MD brooks 11:09:13 Versed I.V. 0.5 Leodan Christie for sedation mg [facility] Denis Lama RN, MD 11:09:23 Fentanyl I.V. 25 Leodan Christie for sedation chai Dumont RN, MD 11:13:43 Heparin Bolus I.V. 2000 Leodan Christie for verif ied units [facility] Denis Lama RN anticoagulation per dr. MD dill Procedure Log Time Note 9:59:33 Informed consent obtained and on chart 9:59:39 Diagnostic Cath Status : Elective 10:00:57 Procedure Status Elective Heart Cath (OP). 10:01:01 Time tracking: Regular hours (M-F 7:00 - 5:00) 10:01:19 Plan of Care:Hemodynamics will remain stable., Cardiac rhythm will remain stable., Comfort level will be maintained., Respiratory function will remain adequate., Patient/ family verbilizes understanding of procedure., Procedure tolerated without complication., Recovers from procedure without complications.. 10:02:01 Lab Result : Hemoglobin 15.5 g/dl 10:02:01 Lab Result : Creatinine 1.5 mg/dl 10:02:01 Lab Result : BUN 19 mg/dl 10:04:53 Admit Source: Other 10:04:55 ACC Patient presents with Stable Angina CCS Anginal Class 2--Slight limitation of ordinary activity. 10:04:59 Family in waiting room. 10:05:01 Patient NPO since Midnight. 10:05:07 Patient allergic to No known allergies 10:07:30 Arrival Date: 09/14/2020 12:00:00 AM 10:07:55 Insurance Payor : Private health insurance 10:08:08 Patient Height : 76 inches 10:08:13 Patient Weight : 188.58 lbs 10:08:25 Patient allergic to No known allergies 10:28:20 Nini Frank RT(R) sent for patient. Start room use. 10:29:11 Lab Result : Hematocrit 44.8 % 10:29:11 Lab Result : eGFR NONAFRICAN 48 ml/min 10:29:51 H&P Date Dictated: 09/14/2020 New H&P dictated by physician.. 10:31:37 Stress Test: no; N/A ? 10:31:39 Lab results completed and on chart. 10:31:42 Risk of Mortality: 0.5 10:31:45 Risk of blood transfusion: 0.1 10:31:48 Risk of JASPER: 1.5 10:31:50 Alarms reviewed by R. N. 10:31:51 Sharps counted by scrub and verified by R.N. 10:32:32 Patient received from Pre/Post Procedure Room to CCL 1 Alert and oriented. Tansferred to table in Supine position. 10:32:34 ECG and BP/O2 sat monitors applied to patient. 10:32:34 Correct patient and procedure confirmed by team. 10:32:34 Warm blankets applied, and atul hugger turned on for patient comfort. 10:32:37 Pre-procedure instructions explained to patient. 10:32:38 Pre-op teaching completed and patient verbalized understanding. 10:33:05 0.9% NaCl 100 ml/hr I.V. was administered by Pratik Lama RN; used for procedure; Verbal order read back and verified. 10:33:27 Oxygen 2 l/min etCO2 Nasal cannula was administered by Pratik Lama RN; used for procedure; Verbal order read back and verified. 10:33:59 Lidocaine 2% 20ml vial S.C. was administered by Leodan Dill MD; for local anesthetic; Verbal order read back and verified. 10:34:39 Heparin Flush Bag (1000units/500ml NS) 2 bags added to field was administered by Leodan Dill MD; used for procedure; Verbal order read back and verified. 10:41:31 Vital chart was started 10:41:33 Full Disclosure recording started 10:41:36 Is the patient allergic to Iodine/contrast media? No. 10:41:37 Was the patient premedicated? Yes 10:41:38 Is patient on blood thinner?Yes 10:41:42 ACC The patient was administered the following blood thiners within the last 24 hours: ACCPlavix, Eliquis 10:41:44 Patient diabetic? No. 10:41:46 If diabetic: On Metformin? N/A 10:41:47 ----Pre-sedation anethsthesia assessment.---- 10:41:51 Previous problem with sedation/anesthesia? No ? 10:41:54 Snore? Yes 10:41:55 Sleep apnea? Unknown 10:41:56 Deviated septum? No 10:41:57 Opens mouth fully? Yes 10:41:58 Sticks out tongue? Yes 10:42:02 Dentures? No ? 10:42:03 Airway obstruction? No ? 10:42:08 Pre procedure: right dorsailis pedis pulse 1+ Palpable, but thready & weak; easily obliterated 10:42:11 Patient pain scale 0/10 ?. 10:42:14 IV patent on arrival in left antecubital with 0.9% NaCl at [facility]. 10:42:18 Right groin area was prepped with chlora-prep and draped in sterile fashion 10:42:25 Baseline sample Acquired. 10:42:37 Rhythm: sinus bradycardia 10:42:51 Use device set Femoral Dx 10:42:52 ACIST Syringe (52942) opened to sterile field. 10:42:53 Medline Cath Pack ([id number]) opened to sterile field. 10:42:53 Bag Decanter (2002S) opened to sterile field. 10:42:54 ACIST Hand Control (04837) opened to sterile field. 10:42:55 ACIST Manifold (47930) opened to sterile field. 10:42:56 SHEATH 5FR [place] (JJU690) opened to sterile field. 10:42:56 DIAGNOSTIC Multipack 5Fr catheter set (NF2864) opened to sterile field. 10:42:57 EMERALD Guide Wire (997-059) opened to sterile field. 10:42:58 Tegaderm 4 x 4 (1626W) opened to sterile field. 10:47:57 Final Timeout: patient, procedure, and site verified with staff and physician. All members of the team are in agreement. 10:47:57 --------ALL STOP TIME OUT------ 10:47:59 Right groin site verified by team. 10:48:03 Fire Safety Assessment: A--An alcohol-based skin anteseptic being used preoperatively., C--Open oxygen or nitrous oxide is being used., D--An ESU, laser, or fiber-optic light is being used. 10:48:07 Physical assessment completed. ASA score P 2 - A patient with mild systemic disease as per Leodan Dill MD. 10:48:41 3a) 45-59 Moderately reduced kidney function. 10:48:44 Maximum allowable contrast dose (3.7 X eGFR X 0.75)133 ml. 10:48:48 Sedation plan: IV Moderate Sedation Medication:Versed, Fentanyl 10:54:39 Versed 0.5 mg I.V. was administered by Pratik Lama RN; for sedation; Verbal order read back and verified. 10:54:46 Fentanyl 25 mcg I.V. was administered by Pratik Lama RN; for sedation; Verbal order read back and verified. 10:54:54 Procedure started. 10:54:58 Local anesthetic to right femoral artery with Lidocaine 2% by Leodan Dill MD.INITIAL ACCESS ONLY 10:55:05 A 5 Fr sheath was inserted into the Right Femoral artery 10:56:20 A MULTIPACK JL 4.0 5Fr catheter was advanced over the wire and used for Procedure. 10:56:59 LCA angiography performed. 10:57:04 Injector settings: Ml/sec: 3, Volume: 6, 10:58:20 Catheter removed. 10:58:24 A MULTIPACK 3DRC 5Fr catheter was advanced over the wire and used for Procedure. 10:59:01 RCA angiography performed. 10:59:04 Injector settings: Ml/sec: 3, Volume: 6, 10:59:34 Catheter removed. 10:59:38 A MULTIPACK Pigtail 5 Fr catheter was advanced over the wire and used for Procedure. 10:59:49 LV gram done using ZARCO 11:00:41 LV hemodynamics recorded. 11:00:48 EF : 55 % 11:00:57 Catheter removed. 11:02:22 Proceeding to intervention. 11:02:27 Use device set LEN PCI 11:02:32 INFLATOR Merit BasixCompak (LG5929) opened to sterile field. 11:02:36 SHEATH 6FR [place] (JAA665) opened to sterile field. 11:02:44 [place] OmniWire (70709) opened to sterile field. 11:03:43 Sheath upsized to a 6 Fr Short. 11:03:50 GUIDE 6FR XBLAD 3.5 catheter ([id number]) opened to sterile field. 11:04:21 6 Fr XBLAD 3.5 guide catheter was inserted over the wire 11:06:10 Heparin Bolus 3000 units I.V. was administered by Pratik Lama RN; for anticoagulation; verified with dr brooks Verbal order read back and verified. 11:06:31 Pre PCI Site: [employer] LAD has 80% stenosis. 11:06:34 Pressure wire advanced. 11:09:13 Versed 0.5 mg I.V. was administered by Pratik Lama RN; for sedation; Verbal order read back and verified. 11::23 Fentanyl 25 mcg I.V. was administered by Pratik Lama RN; for sedation; Verbal order read back and verified. 11:10:47 Wire advanced across lesion. 11:13:43 Heparin Bolus 2000 units I.V. was administered by Pratik Lama RN; for anticoagulation; verified per dr. dill Verbal order read back and verified. 11:15:21 Place stent Inflation Number: 1 A AUBREY RX 3.0 x 18 stent ([id number]) was prepped and advanced across the Prox LAD . The stent was deployed at 14 KAMRYN for 0:32 (min:sec) . 11:21:28 Wire removed. 11:21:28 Stent catheter was removed intact over wire. 11:21:29 Guide catheter removed. 11:21:32 EXOSEAL 6Fr (EX600) opened to sterile field. 11:21:44 Sheath removed intact; hemostasis achieved with Exoseal to the Right Femoral artery. 11:21:50 Fluoroscopy time 07.20 minutes. 11:21:53 Fluoroscopy dose: 544 mGy 11:21:53 Flurop Dose total: 544 11:22:00 Dose Area Product 08209 mGy/cm. 11:22:03 Maximum allowable dose exceeded? No. 11:22:04 Sharps counted by scrub and verified by R.N. 11:22:13 Post-op/insertion site Right Femoral artery dressed using a 4 x 4 and Tegaderm. 11:22:17 Post right femoral artery:stable, soft, clean and dry 11:22:19 Post Procedure Pulses reassessed and unchanged 11:22:22 Post procedure: right dorsailis pedis pulse 1+ Palpable, but thready & weak; easily obliterated. 11:22:26 Post-procedure physical assessment completed. ASA score P 2 - A patient with mild systemic disease as per Leodan Dill MD. 11:22:29 Post procedure rhythm: unchanged. 11::32 Estimated blood loss: 10 ml 11:22:33 Post procedure instruction explained to patient.Patient verbalizes understanding. 11::34 Patient needs reinforcement of post procedure teaching. 11::45 Procedure ended.(Physican Out) 11:23:05 Procedure type changed to Cath procedure, Diagnostic procedure, LHC, [facility] w/Coronaries, Sedation Charges, Moderate Sedation 25-39 minutes, PCI procedure, Coronary Stent, Coronary Stent Initial, Hemochron ACT Test 11:23:26 Procedure and supply charges have been captured, reviewed, submitted and are correct. 11:23:31 Procedure Complication : No complications 11:23:36 [facility] Findings: MVD- PCI performed (see procedure note) 11:23:39 Operative report dictated upon procedure completion. 11:23:40 See physician's report for complete and final results. 11:23:41 Report given to Pre/Post Procedure Room. 11:23:45 Patient transfered to Pre/Post Procedure Room with Stretcher. 11:25:30 ACT drawn and resulted at 236 seconds. (normal therapeutic range 180-240 seconds). 11:26:26 Contrast amount:Isovue 370 141ml. 11::34 Full Disclosure recording stopped 11::34 Procedure ended. 11:26:44 ACC-PCI Only Patient was given prescriptions, or instructed by Leodan Dill MD to start/continue the following medications upon discharge: Plavix 11:26:45 End room use (Document Last) 11:27:18 End room use (Document Last) 11:27:38 Vital chart was stopped 11:34:41 FEMSTOP Gold ([id number]) opened to sterile field. 11:34:53 Femstop placed over the right femoral artery at 138 mmHg. Hemostasis achieved. Intervention Summary Intervention Notes Time ActionType Lesion and Equipment Used Action# Pressure Duration Attributes 11:15:[address] Place stent Prox LAD AUBREY RX 3.0 x 1 14 00:32 18 stent ([id number]) Device Usage Item Name Manufacture Quantity Catalog Hospital Part Current [facility] Lot# / Number Charge Number Stock Stock Serial# Code ACIST Syringe Acist 1 19884 857531 567918 530567 20 (59477) Dialoggy Inc Bag Decanter Microtek 1 612333 12524 353893 5 (2002S) Medical Inc. Medline Cath Medline 1 [id number] 860057 33692 344436 5 Pack ([id number]) ACIST Hand Acist 1 20120 140660 397002 389289 5 Control Medical (02243) Systems Inc ACIST Manifold Acist 1 73764 058614 543029 181821 5 (97422) Medical Systems Inc DIAGNOSTIC Cardinal 1 FV1822 803381 26528 601149 30 Multipack 5Fr Health catheter set (LP7372) SHEATH 5FR Terumo 1 ICL980 789257 694857 972211 5 [place] (KJX709) EMERALD Guide Cardinal 1 502-455 242814 730077 704553 5 Wire (502-455) Ocutronics Tegaderm 4 x 4 3M 1 1626W 751080 126841 124612 5 (1626W) MULTIPACK JL Cardinal 1 096335 5 4.0 5Fr Ocutronics catheter MULTIPACK 3DRC Cardinal 1 202123 5 5Fr catheter Health MULTIPACK Cardinal 1 438121 5 Pigtail 5 Fr Health catheter INFLATOR Merit Merit 1 HN0601 479231 815321 092727 15 Airpush (NZ7299) SHEATH 6FR Terumo 1 PED419 499763 097652 195523 40 [place] (ZNV838) [place] 1 7965952 016380 30196 9962 5 OmniWire (64796) GUIDE 6FR Cardinal 1 [id number] 714045 191279 665720 10 XBLAD 3.5 Health catheter ([id number]) AUBREY RX 3.0 x Medtronic 1 [id number] 686530 6700177 729764 5 [id number] 18 stent ([id number]) EXOSEAL 6Fr Cardinal 1 EX600 784179 838896 784608 10 (EX600) Health FEMSTOP Gold [place] 1 Z62880 312143 204435 856519 5 ([id number]) Signature Audit [place] Stage Time Signature Unsigned Intra-Procedure 09/14/2020 Bharati Landry 11:26:55 AM RT(R) Intra-Procedure 09/14/2020 Bharati Landry 11:27:04 AM RT(R) Intra-Procedure 09/14/2020 Pratik Lama RN 11:27:18 AM Intra-Procedure 09/14/2020 Leodan Dill MD 11:27:36 AM Denis [place] 09/14/2020 11:34:33 AM Intra-Procedure 09/14/2020 Bharati Landry 11:35:23 AM RT(R) Intra-Procedure 09/14/2020 Leodan Bhatt 11:35:39 AM Denis [place] [facility] [address] [place] [address]
[~2020-09-14 07:36] MED LIST changes: +BETAPACE 80 MG80 MG PO
[2020-09-14] MEDS ORDERED: PACERONE200 MG PO (08:21)
[2020-09-14 08:30] VITALS: BP 155/79; Ht 193 cm; Wt 85.5 kg
[2020-09-14 08:48] LABS: BASOPHILS 0.3 % (0-2); EOSINOPHILS 4.3 % (0-7); HEMATOCRIT 44.8 % (42.0-54.0); HEMOGLOBIN 15.5 g/dL (13.5-17.5); LYMPHOCYTE ABS# 1.84 10x3/uL (1.32-3.57); LYMPHOCYTES 30.4 % (15-50); MCH 33.5 pg (26.0-34.0); MCHC 34.6 g/dL (31.0-37.0); MEAN PLATELET VOLUME 10.4 fL (7.4-10.4); MONOCYTES 10.1 % (2-11); NEUTROPHIL ABS# 3.33 10x3/uL (1.78-5.38); NEUTROPHILS 54.9 % (40-80); PLATELET COUNT 169 10x3/uL (130-400); RBC 4.62 10x6/uL (4.20-6.10); RDW 12.9 % (11.5-14.5); WBC 6.1 10x3/uL (4.8-10.8)
[2020-09-14 09:09] LABS: ANION GAP 12.5 mmol/L (8-16); CALCIUM 8.6 mg/dL (8.5-10.1); CARBON DIOXIDE 27.6 mmol/L (21.0-32.0); CHOL - HDL RATIO 3.8 ratio (2.3-4.9); CREATININE - SERUM 1.5 mg/dL (0.6-1.3); LDL-HDL RATIO 2.4 ratio (1.5-3.5); POTASSIUM - SERUM 4.1 mmol/L (3.5-5.1)
--- NOTE | 2020-09-14 11:40 | NUR ---
PT REC'D TO CATH RECOVERY ROOM 8 VIA STRETCHER, AT BS. MONITORS ESTAB. SEE OXYGEN THERAPY TEACHER FLOWSHEETS. ALARMS ON AND C/L IN REACH.
--- NOTE | 2020-09-14 11:45 | NUR ---
DR. HARRINGTON IN TO SEE PT, UPDATE GIVEN AND QUESTIONS ANSWERED.
--- NOTE | 2020-09-14 11:55 | NUR ---
R GROIN SITE C/D/I, NO S/S BLEEDING OR HEMATOMA. R LEG/FOOT WARM WITH PALP PULSES AND CAP REFILL WNL. VSS. ALARMS ON AND C/L IN REACH.
--- NOTE | 2020-09-14 12:25 | NUR ---
R GROIN SITE C/D/I, NO S/S BLEEDING OR HEMATOMA. WEANING FEMSTOP, NOW AT 70MMHG, PULSES PALP. VSS. AT BS. ALARMS ON AND C/L IN REACH.
--- NOTE | 2020-09-14 12:45 | NUR ---
R GROIN SITE C/D/I, NO S/S BLEEDING OR HEMATOMA. FEMSTOP WEANED TO 50MMHG. PULSES PALP. ALARMS ON AND C/L IN REACH. PENNYINS AT BS.
--- NOTE | 2020-09-14 13:15 | NUR ---
ALL AIR WEANED OFF FEMSTOP, NO S/S BLEEDING OR HEMATOMA, PULSES PALP. PT RESTING QUIETLY. VSS. ALARMS ON AND C/L IN REACH.
--- NOTE | 2020-09-14 13:44 | NUR ---
FEMSTOP REMOVED, NO S/S BLEEDING OR HEMATOMA. PULSES PALP. VSS.
--- NOTE | 2020-09-14 14:15 | NUR ---
PT RESTING QUIETLY, R GROIN SITE SOFT, NO S/S BLEEDING OR HEMATOMA, PULSES PALP. VSS. ALARMS ON AND C/L IN REACH.
--- NOTE | 2020-09-14 14:30 | NUR ---
R GROIN SITE C/D/I. HOB ELEVATED GRADUALLY. TOMÁS AND GRACY PROVIDED, AT BS ASSISTING PT. ALARMS ON, C/L IN REACH.
--- NOTE | 2020-09-14 15:00 | NUR ---
PT ATE ALL OF SANDWICH, VSS. R GROIN SITE SOFT, NO S/S BLEEDING OR HEMATOMA. PULSES PALP. PT DENIES PAIN OR NEEDS.
--- NOTE | 2020-09-14 15:10 | NUR ---
R GROIN SITE SOFT, C/D/I. PT UP TO BR INDEPENDENTLY. GAIT STEADY.
--- NOTE | 2020-09-14 15:17 | NUR ---
ALL DISCHARGE INSTRUCTIONS REVIEWED WITH PT AND HIS , INCLUDING RESTRICTIONS, MEDS AND F/U APPT. BOTH VERBALIZE UNDERSTANDING. PIV D/C'D INTACT. PT UP TO GET DRESSED, ASSISTING.
--- NOTE | 2020-09-14 15:31 | NUR ---
PT D/C'D VIA WC TO PRIVATE VEHICLE WITH ALL BELONGINGS AND PAPERWORK.
--- NOTE | 2020-09-16 08:06 | HP ---
PATIENT: DENIS HERMOSILLOTON MEDICAL RECORD: [id number] ACCOUNT: [id number] LOCATION:AL : 43 ADMISSION DATE: 09/14/20 PCP: HIREN DICK MD HISTORY AND PHYSICAL EXAMINATION HISTORY OF PRESENT ILLNESS: A 74-year-old gentleman with a history of single vessel disease status post CVA. He was undergoing event monitor for occult arrhythmias with embolic event. He was found to have atrial fibrillation; however, while being monitored as well, he was found to have 14 beat run of ventricular tachycardia. Given his underlying more malignant rhythms, it was felt that angiography was indicated. He was brought to the engineering laboratory technician for this purpose. PAST MEDICAL HISTORY: Includes: 1. History of hypertension. 2. Hyperlipidemia. 3. Cerebrovascular disease, status post CVA. PHYSICAL EXAMINATION: GENERAL: Well-developed, well-nourished, in no acute distress. HEENT: Normocephalic, atraumatic. NECK: No JVD or bruit. CARDIOVASCULAR: Regular. LUNGS: Good air excursion. ABDOMEN: Soft and nontender. EXTREMITIES: Pulses 2+. No edema. IMPRESSION: Ventricular tachycardia and known vascular disease with cerebrovascular accident. PLAN: For angiography and intervention based on the above. TRANSINT:[id number] Voice Confirmation ID: [id number] DOCUMENT ID: [id number] MIGUEL HARRINGTON MD at 0806 CC: [id number] DICTATION DATE: 09/14/20 1132 GPS NAVIGATION INSTALLER: 09/14/20 1245 [facility] 09/14/20 [id number] [place] [address]
--- NOTE | 2020-09-16 08:06 | OP ---
PATIENT NAME: DENIS HERMOSILLO MEDICAL RECORD: [id number] :41 LOCATION:D.CAT ADMISSION DATE: SURGEON: MIGUEL HARRINGTON MD DATE OF OPERATION: 09/14/2020 PROCEDURES: Left heart catheterization, selective coronary angiography plus PTCA stenting to the LAD, right femoral artery approach. CATHETERS: A 5-Palestinian sheath, 5/4 left and right [place], 5/4 pig. The procedure was well tolerated. The patient was returned to the borja. Sheath removed. ExoSeal device placed. FINDINGS: Left ventriculography in 30-degree ZARCO view: Normal wall motion, normal systolic function. CORONARY ANATOMY: Left main: Left main is free of disease. LAD: Has a tight 80% stenosis right at the takeoff of the first septal. Circumflex: Free of disease. Right coronary artery: Dominant artery, gives rise to PDA, free of disease. IMPRESSION: Single vessel disease involving the LAD. PLAN: Intervention momentarily. DESCRIPTION: A 5-Palestinian sheath was exchanged for a 6-Palestinian sheath. XB LAD guiding catheter provided good guide catheter support followed by Omni pressure wire placed across the LAD down towards the vessel. Stent deployed was a 3.0 x 18 mm [place] drug-eluting stent up to 14 atmospheres. Angiographically, this shows an 80% stenosis. No significant residual. Technically, she is with the wire itself, we were unable to do a post-iFR wire pressures. Sheath closed with ExoSeal device. The patient was previously on Plavix. TRANSINT:[id number] Voice Confirmation ID: [id number] DOCUMENT ID: [id number] MIGUEL HARRINGTON MD at 0806 CC: [id number] DICTATION DATE: 09/14/20 1130 CLIENT ARCHITECT: 09/14/20 1229 [facility] 09/14/20 [place] [id number] [place] [id number]
== END 2020-09-14 15:31 | disposition home or self-care (01) ==
LOC: D.CATH 07:36
PROVIDERS: ATTEND Internal Medicine Interventional Cardiology
DX: I20.8 Other forms of angina pectoris (principal); I48.91 Unspecified atrial fibrillation; Z86.73 Personal history of transient ischemic attack (TIA), and cerebral infarction without residual deficits; I10 Essential (primary) hypertension; E78.5 Hyperlipidemia, unspecified; I47.2 Ventricular tachycardia
CPT/HCPCS: 93458; C9600

== ENCOUNTER 2020-10-01 10:52 | Day surgery (SDC) | payer OTHER ==
[~2020-10-01] VITALS: Ht 193 cm; Wt 86.1 kg
--- NOTE | ~2020-10-01 | HEMODYNAMI ---
PATIENT:DENIS HERMOSILLO MEDICAL RECORD: [id number] : 41 LOCATION:[facility] ADMISSION DATE: 10/01/20 Generatedon:114:23 Patient name: DENIS HERMOSILLO Patient #: [id number] SSN: [id number] : 1945 Date of study: 10/01/2020 Page: Of Hemodynamic Procedure Report Patient Data Patient Demographics Procedure consent was obtained First Name: DENIS Gender: Male Last Name: JAIMEE : 1945 [facility] Initial: DYLAN Age: 74 year(s) Patient #: [id number] Race: SSN: [id number] Additional ID: [id number] Contact details Address: [address] [place] [address] State: [place] City: [facility] Zip code: [address] Past Medical History Allergies: No known allergies Admission Admission Data Admission Date: 10/01/2020 Admission Time: 10:52 Arrival Date: 10/01/2020 Arrival Time: 0:00 Admit Source: Other Insurance Payor: Private health insurance [facility] #: [id number] Height (in.): 76 BSA: 2.17 (m2) Height (cm.): 193.04 BMI: 23.13 (kg/m2) Weight (lbs.): 190 Weight (kg.): 86.18 Lab Results Lab Result Date: 10/01/2020 Lab Result Time: 0:00 Biochemistry Name Units Result Min Max BUN mg/dl 18 --(---*)-- 7 18 Creatinine mg/dl 1.2 --(---*)-- 0.6 1.3 eGFR ml/min 63 *-(----)-- 90 120 NONAFRICAN CBC Name Units Result Min Max Hematocrit % 44.4 --(*---)-- 42 54 Hemoglobin g/dl 15.1 --(-*--)-- 13.5 17.5 Procedure Procedure Types Cath Procedure Diagnostic Procedure PPM/ICD PPM Dual Implant Sedation Charges Moderate Sedation 25-39 minutes Procedure Description Procedure Date Procedure Date: 10/01/2020 Procedure Start Time: 13:52 Procedure End Time: 14:19 Procedure Staff Name Function Leodan Dill MD Performing Physician Jason Abraham MD Assisting physician Pratik Lama RN Nurse Tacos Davis RN Nurse Cindy Capone RT Monitor Shanda Arora RT Scrub Indication Atrial fibrillation Procedure Data Cath Procedure Fluoroscopy Diagnostic fluoroscopy Total fluoroscopy Time: 1 time: 1 min min Diagnostic fluoroscopy Total fluoroscopy dose: 14 dose: 14 mGy mGy Estimated blood loss: 5 ml Procedure Complications No complications Procedure Medications Medication Administration Route Dosage Lidocaine 2% added to field 20 0.9% NaCl I.V. 25 ml/hr Ancef (1Gm/50ml NS) I.V.P.B 1 g Ancef Irrigation Topical 1 g (1gm/500ml NS) Fentanyl I.V. 50 mcg Versed I.V. 1 mg Fentanyl I.V. 50 mcg Versed I.V. 1 mg Fentanyl I.V. 25 mcg Versed I.V. 0.5 mg Hemodynamics Rest BSA: 2.17 (m2) HGB: 15.1 (g/dl) O2 Consumption: Estimated: 233 (ml/min) O2 Consu mption indexed: Estimated:107.37 (ml/min/m) Heart Rate: 50 (bpm) Snapshots Pre Cath Intra NCS Post Cath Vital Signs Time Heart Resp SPO2 NIBP (mmHg) Rhythm Pain Sedation Rate (ipm) (%) Status Level (bpm) 13:16:51 57 13 99 134/82(126) A-Fib 0 (11) 10(A) , No pain 13:21:03 53 11 98 142/73(120) A-Fib 0 (11) 10(A) , No pain 13:25:16 58 11 96 138/78(97) A-Fib 0 (11) 10(A) , No pain 13:29:26 54 14 97 137/80(105) A-Fib 0 (11) 10(A) , No pain 13:33:38 62 16 96 128/75(100) A-Fib 0 (11) 10(A) , No pain 13:37:47 56 14 95 131/70(100) A-Fib 0 (11) 10(A) , No pain 13:42:01 43 13 95 131/62(93) A-Fib 0 (11) 10(A) , No pain 13:46:11 57 13 95 127/71(97) A-Fib 0 (11) 10(A) , No pain 13:50:25 62 13 94 121/58(78) A-Fib 0 (11) 9(A) , No pain 13:54:33 98 23 96 122/72(94) A-Fib 0 (11) 9(A) , No pain 13:58:45 58 12 93 112/61(85) A-Fib 0 (11) 9(A) , No pain 14:02:53 58 15 95 128/60(82) A-Fib 0 (11) 9(A) , No pain 14:06:58 60 10 91 130/79(98) Paced 0 (11) 9(A) , No pain 14:11:08 63 11 93 122/72(101) Paced 0 (11) 9(A) , No pain 14:15:12 79 12 97 124/82(99) Paced 0 (11) 10(A) , No pain 14:19:11 No Cuff Paced 0 (11) 10(A) , No pain Medications Time Medication Route Dose Verified Delivered Reason Notes Effecti veness by by 13:13:50 Lidocaine added 20ml Leodan Gomez for local 2% to vial [facility] Denis Abraham MD anesthetic field x2 13:14:08 0.9% NaCl I.V. 25 Leodan Balderrama used for ml/hr St Denis Davis RN procedure 13:14:19 Ancef I.V.P.B 1 g Leodan Balderrama used for (1Gm/50ml St Denis Davis supervisor gear repair NS) 13:14:33 Ancef Topical 1 g Mormonism Mormonism used for Irrigation Tiffany Abraham MD procedure (1gm/500ml NS) 13:49:30 Fentanyl I.V. 50 Leod[address] for mcg [facility] Denis Davis RN sedation 13:49:34 Versed I.V. 1 mg Leodan Tacos for [facility] Denis Davis RN sedation 13:52:12 Fentanyl I.V. 50 Leodan Tacos for mcg [facility] Denis Davis RN sedation 13:52:20 Versed I.V. 1 mg Leodan Tacos for [facility] Denis Davis RN sedation 13:55:27 Fentanyl I.V. [address] Denis Davis RN sedation 13:55:33 Versed I.V. 0.[address] Denis Davis RN sedation Procedure Log Time Note 12:13:54 Informed consent obtained and on chart 12:14:04 Diagnostic Cath Status : Elective 12:14:20 Arrival Date: 10/01/2020 12:00:00 AM 12:14:21 Admit Source: Other 12:14:25 Insurance Payor : Private health insurance 12:14:52 Patient Height : 76 inches 12:14:56 Patient Weight : 190 lbs 12:16:39 Indication : Atrial fibrillation 12:16:51 Procedure Status PPM/ Gen Change/ Lead Revision/ Temp. 12:16:53 Time tracking: Regular hours (M-F 7:00 - 5:00) 12:16:57 Plan of Care:Hemodynamics will remain stable., Cardiac rhythm will remain stable., Comfort level will be maintained., Respiratory function will remain adequate., Patient/ family verbilizes understanding of procedure., Procedure tolerated without complication., Recovers from procedure without complications.. 12:17:09 H&P Date Dictated: 09/21/2020 Within 30 days and on chart.. 12:17:12 Family unavailable. 12:17:15 Patient NPO since Midnight. 12:17:29 Patient allergic to No known allergies 12:17:33 Alarms reviewed by R. N. 12:17:33 Sharps counted by scrub and verified by R.N. 12:57:27 Lab Result : Creatinine 1.2 mg/dl 12:57:27 Lab Result : BUN 18 mg/dl 12:57:27 Lab Result : Hematocrit 44.4 % 12:57:27 Lab Result : Hemoglobin 15.1 g/dl 12:57:27 Lab Result : eGFR NONAFRICAN 63 ml/min 13:00:18 Tacos Davis RN sent for patient. Start room use. 13:07:30 Patient received from Pre/Post Procedure Room to CCL 3 Alert and oriented. Tansferred to table in Supine position. 13:07:32 Warm blankets applied, and atul hugger turned on for patient comfort. 13:13:50 Lidocaine 2% 20ml vial x2 added to field was administered by Jason Abraham MD; for local anesthetic; Verbal order read back and verified. 13:14:08 0.9% NaCl 25 ml/hr I.V. was administered by Tacos Davis RN; used for procedure; Verbal order read back and verified. 13:14:19 Ancef (1Gm/50ml NS) 1 g I.V.P.B was administered by Tacos Davis RN; used for procedure; Verbal order read back and verified. 13:14:33 Ancef Irrigation (1gm/500ml NS) 1 g Topical was administered by Jason Abraham MD; used for procedure; Verbal order read back and verified. 13:15:38 Vital chart was started 13:18:16 Correct patient and procedure confirmed by team. 13:18:16 ECG and BP/O2 sat monitors applied to patient. 13:18:18 Baseline sample Acquired. 13:19:20 Rhythm: atrial fibrillation 13:19:21 Full Disclosure recording started 13:19:22 Pre-procedure instructions explained to patient. 13:19:22 Pre-op teaching completed and patient verbalized understanding. 13:19:25 Is patient on blood thinner?Yes 13:19:46 PLAVIX AND ELIQUIS ON MONDAY 13:19:49 Patient diabetic? No. 13:19:51 Previous problem with sedation/anesthesia? No ? 13:19:53 Snore? Yes 13:19:54 Sleep apnea? No 13:19:55 Deviated septum? No 13:19:55 Opens mouth fully? Yes 13:19:56 Sticks out tongue? Yes 13:19:57 Airway obstruction? No ? 13:19:59 Dentures? No ? 13:20:02 Patient pain scale 0/10 ?. 13:20:08 IV patent on arrival in right antecubital with 0.9% NaCl at [facility]. :20:38 Lab results completed and on chart. 13:20:43 Left chest area was prepped with chlora-prep and draped in sterile fashion 13:21:30 Use device set TIFFANY PPM 13:21:31 2-0 Ticron Multipack ([id number]) opened to sterile field. 13:21:32 3-0 Vicryl Single Pack [id number] opened to sterile field. 13:21:32 5-0 Monocryl PS2 [id number] opened to sterile field. 13:21:32 Cautery Tip Pole Classifier opened to sterile field. 13:21:33 Cautery Pushbutton Pencil opened to sterile field. 13:21:33 Mepilex Dressing ([id number]) opened to sterile field. 13:21:35 Immobilizer Large opened to sterile field. 13:48:03 --------ALL STOP TIME OUT------ 13:48:03 Final Timeout: patient, procedure, and site verified with staff and physician. All members of the team are in agreement. 13:48:06 Left chest site verified by team. 13:48:09 Fire Safety Assessment: A--An alcohol-based skin anteseptic being used preoperatively., B--The operative or invasive procedure is being performed above the xiphoid process or in the oropharynx., C--Open oxygen or nitrous oxide is being used. 13:48:14 Physical assessment completed. ASA score P 2 - A patient with mild systemic disease as per Leodan Dill MD. 13:48:20 Sedation plan: IV Moderate Sedation Medication:Versed, Fentanyl 13:49:30 Fentanyl 50 mcg I.V. was administered by Tacos Davis RN; for sedation; Verbal order read back and verified. 13:49:34 Versed 1 mg I.V. was administered by Tacos Davis RN; for sedation; Verbal order read back and verified. 13:51:22 Procedure started. 13:52:02 Medtronic commercial pest control representative ADAM GARZA present for procedure. 13:52:11 Pre sharps counted by scrub and verified by RN: Sutures: 7; Sponges: 5; Stick needles: 2; Skin needles: 2; Blade: 1; Cautery: 1 13:52:12 Fentanyl 50 mcg I.V. was administered by Tacos Davis RN; for sedation; Verbal order read back and verified. 13:52:14 Grounding pad site Right thigh. 13:52:16 Grounding pad site free from injury. 13:52:20 Versed 1 mg I.V. was administered by Tacos Davis RN; for sedation; Verbal order read back and verified. 13:52:24 Lidocaine 1% was administered to left subclavicular area by Jason Abraham MD . 13:52:27 Incision made to left subclavicular area. 13:54:[address] Generator [id number] opened to sterile field. 13:55:27 Fentanyl 25 mcg I.V. was administered by Tacos Davis RN; for sedation; Verbal order read back and verified. 13:55:33 Versed 0.5 mg I.V. was administered by Tacos Davis RN; for sedation; Verbal order read back and verified. 13:56:53 Medtronic 4074-58 PPM Lead opened to sterile field. 13:57:00 Medtronic 4574-53 PPM Lead opened to sterile field. 13:58:58 Generator pocket made/opened. 13:59:12 Left subclavian vein accessed with 7Fr Peel Away Sheath. 13:59:14 Left subclavian vein accessed with 7Fr Peel Away Sheath. 13:59:40 Ventricular lead inserted and advanced. 13:59:42 Atrial lead inserted and advanced. 14:00:30 Ventricular lead positioned. 14:00:34 Ventricular lead tested. 14:00:58 Ventricular lead positioned. 14:01:04 Ventricular lead tested. 14:02:20 Atrial lead positioned. 14:02:24 Atrial lead tested. 14:03:29 Peel-a-way sheath was split and removed. 14:03:30 Peel-a-way sheath was split and removed. 14:04:07 PPM Dual was attached to lead(s) and inserted into pocket. 14:04:10 PPM Dual was inserted subcutaneously to left chest. 14:04:13 Device pocket was irrigated with Ancef. 14:06:16 Atrial lead attachment was completed with 2-0 ticron. 14:06:18 Ventricular lead attachment was completed with 2-0 ticron. 14:06:22 Generator was sutured in place with 2-0 ticron. 14:09:52 Subcutaneous closure was completed with 3-0 vicryl. 14:10:19 Skin closure was completed with 5-0 monocryl. 14:14:59 Procedure ended.(Physican Out) 14:15:16 Fluoroscopy time 01.00 minutes. 14:15:40 Fluoroscopy dose: 14 mGy 14:15:40 Flurop Dose total: 14 14:15:44 Dose Area Product 192 mGy/cm. 14:16:12 Sharps counted by scrub and verified by R.N. 14:16:25 Lt Chest incision was dressed with Mepilex dressing. 14:16:36 Post-procedure physical assessment completed. ASA score P 2 - A patient with mild systemic disease as per Leodan Dill MD. 14:16:39 Post procedure rhythm: paced 14:16:47 Estimated blood loss: 5 ml 14:16:49 Post procedure instruction explained to patient.Patient verbalizes understanding. 14:16:49 Patient needs reinforcement of post procedure teaching. 14:18:07 Procedure type changed to Cath procedure, Diagnostic procedure, PPM/ICD, PPM Dual Implant, Sedation Charges, Moderate Sedation 25-39 minutes 14:18:47 Procedure and supply charges have been captured, reviewed, submitted and are correct. 14:18:50 Procedure Complication : No complications 14:18:52 Vital chart was stopped 14:18:53 Operative report dictated upon procedure completion. 14:18:54 See physician's report for complete and final results. 14:18:56 Report given to Pre/Post Procedure Room. 14:18:59 Patient transfered to Pre/Post Procedure Room with Bed. 14:19:11 Procedure ended. 14:19:11 Full Disclosure recording stopped 14:19:15 End room use (Document Last) Device Usage Item Name Manufacture Quantity Catalog Hospital Part Current Minima l Lot# / Serial# Number Charge Number Stock Stock Code 2-0 Ticron Ethicon 5 [id number] 938698 54457 [id number] 5 Multipack ([id number]) 3-0 Vicryl Ethicon 1 [id number] 779415 337134 748426 5 Single Pack [id number] 5-0 Monocryl Ethicon 1 Y495G 120305 240065 021352 5 PS2 Y495G Cautery Tip Microtek 1 [id number] 601117 901193 871838 5 Pole Class[employer] Cautery Microtek 1 [id number] 018780 10154 224897 5 Pushbutton [employer] Pencil Mepilex Cardinal 1 918007 999916 003384 144369 5 [facility] ([id number]) Immobilizer Cardinal 1 [id number] 289115 099589 5 [facility] Medtronic Medtronic 1 [id number] 619390 [id number] 201069 [id number] EXP:02.02.2022 Generator [id number] Medtronic Medtronic 1 4074-58 404290 610686 552522 5 [id number] 4074-58 PPM 2.5.23 Lead Medtronic Medtronic 1 4574-53 [id number] 016227 835460 5 [id number] 4574-53 PPM 2.9.23 Lead Signature Audit [place] Stage Time Signature Unsigned Intra-Procedure 10/01/2020 Cindy Capone 2:20:18 PM RT(R) Intra-Procedure 10/01/2020 Tacos Davis RN 2:22:51 PM Intra-Procedure 10/01/2020 Leodan Bhatt 2:23:11 PM Denis [id number] [place] [address]
--- NOTE | ~2020-10-01 | OP ---
PATIENT NAME: DENIS HERMOSILLO MEDICAL RECORD: [id number] :41 LOCATION:D.CAT ADMISSION DATE: SURGEON: ELENA ALLEN MD DATE OF OPERATION: 10/01/2020 PREOPERATIVE DIAGNOSIS: Atrial fibrillation with pauses. POSTOPERATIVE DIAGNOSIS: Atrial fibrillation with pauses. PROCEDURE: Left subclavian vein dual lead pacemaker placement. SURGEON: Elena Allen MD CO-SURGEON: Leodan Littlejohn MD DESCRIPTION OF PROCEDURE: The patient's left chest was prepped and draped in sterile fashion. A total of 20 mL of 1% lidocaine with epinephrine was infused in the surrounding tissues. A transverse incision was made on the left superior lateral chest and a subcutaneous pouch was made over the pectoral fascia. [place] were used to cannulate the left subclavian vein. The guidewires were advanced with these. Fluoroscopy was used to note that the wires were in good position in the venous system. Dilator trocar devices were placed over the wires and the wires and dilators were removed. The leads were advanced through the trocars until they rested in the superior vena cava. At this point, Dr. Littlejohn positioned the leads appropriately in the atrium and ventricle. Once the leads were noted to be functioning well, then they were sutured into place with 2-0 Ti-Cron. The leads were affixed to the pacemaker, which was placed into the subcutaneous pouch and sutured down with a single interrupted 2-0 Ti-Cron. We irrigated out the wound bed with antibiotic solution. Subcutaneous tissues were reapproximated with interrupted 3-0 Vicryl and the skin was closed with running subcutaneous 5-0 Monocryl. COMPLICATIONS: None. CONDITION: Stable. ANESTHESIA: Local MAC. BLOOD LOSS: Minimal. TRANSINT:[id number] Voice Confirmation ID: [id number] DOCUMENT ID: [id number] ELENA ALLEN MD CC: [id number] DICTATION DATE: 10/01/20 141 FINISHER MERCHANT PRODUCTS: 10/01/20 16[address] [place] [id number] [place] [id number]
--- NOTE | ~2020-10-01 | OP ---
PATIENT NAME: DENIS HERMOSILLO MEDICAL RECORD: [id number] :41 LOCATION:D.CAT ADMISSION DATE: SURGEON: MIGUEL HARRINGTON MD DATE OF OPERATION: 10/01/2020 PROCEDURE: Lead portion of permanent pacemaker placement. INDICATIONS: Sick sinus syndrome with PAF and pauses. SURGEON: Jason Abraham MD DESCRIPTION OF PROCEDURE: After left subclavian was cannulated via modified Seldinger technique via Dr. Abraham first under fluoroscopic guidance, I placed the RV lead in the RV apex without difficulty. After adequate R waves and thresholds were obtained, again under fluoroscopic guidance, I placed a right atrial lead in the right atrial appendage without difficulty. After adequate fibrillatory waves and resistance was measured, the leads were attached to appropriate pole in the generator and the pocket was closed via Dr. Abraham. IMPRESSION: Successful lead portion of permanent pacemaker placement on Denis Hermosillo. ESTIMATED BLOOD LOSS: Minimal. COMPLICATIONS: None. DISPOSITION: To the floor, stable. TRANSINT:[id number] Voice Confirmation ID: [id number] DOCUMENT ID: [id number] MIGUEL HARRINGTON MD CC: [id number] DICTATION DATE: 10/01/20 1409 LEVEL GLASS FORMING MACHINE OPERATOR: 10/01/20 1558 [facility] [address] [place] [address]
[~2020-10-01 10:52] MED LIST changes: +PACERONE200 MG PO
[2020-10-01 11:53] VITALS: BP 141/80; Ht 193 cm; Wt 86.1 kg
[2020-10-01 12:07] LABS: ANION GAP 8.9 mmol/L (8-16); CALCIUM 8.7 mg/dL (8.5-10.1); CARBON DIOXIDE 29.2 mmol/L (21.0-32.0); CREATININE - SERUM 1.2 mg/dL (0.6-1.3); POTASSIUM - SERUM 4.1 mmol/L (3.5-5.1)
[2020-10-01 12:14] LABS: APTT 28.8 SECONDS (22.8-39.4); INR 1.1 (0.85-1.17); PROTIME 13.1 SECONDS (11.6-15.0)
[2020-10-01 12:33] LABS: HEMATOCRIT 44.4 % (42.0-54.0); HEMOGLOBIN 15.1 g/dL (13.5-17.5); MCH 33.6 pg (26.0-34.0); MCV 98.7 fL (80.0-100.0); MEAN PLATELET VOLUME 10.5 fL (7.4-10.4); RBC 4.5 10x6/uL (4.20-6.10); RDW 12.8 % (11.5-14.5); WBC 5.2 10x3/uL (4.8-10.8)
--- NOTE | 2020-10-01 14:29 | NUR ---
PT ARRIVES TO ROOM 8 VIA STRETCHER FROM TRAFFIC SIGN SUPERVISOR S/P PPM PLACEMENT. SEE DRIVE TESTER, IV INFUSING PER ORDERS, DENIES PAIN OR NEEDS. CALL LIGHT WITH IN REACH, DR LATHAM HAS SPOKEN WITH SPOUSE PRIOR TO ARRIVAL OF PT
--- NOTE | 2020-10-01 14:45 | NUR ---
PT SEMI FOWLERS POSITION, AWAKE AND ALERT, VSS, PACED PER MONITOR, LEFT CHEST WITH MEPILEX DRESSING C/D/I. LEFT ARM SLING IN PLACE. DENIES PAIN OR NEEDS, CALL LIGHT WITHIN REACH. SPOUSE AT BEDSIDE
--- NOTE | 2020-10-01 15:00 | NUR ---
RESTING QUIETLY , VSS, PACED PER MONITOR , DRESSING C/D/I, DENIES PAIN OR NEEDS , CALL LIGHT WITHIN REACH, SPOUSE AT BEDSIDE
--- NOTE | 2020-10-01 15:25 | NUR ---
CXR RESULTED SHOWS NO PNEUMOTHORAX PER RADIOLGY MD
--- NOTE | 2020-10-01 15:35 | NUR ---
PT GIVEN SANDWICH BOX AND DRINK CONSUMED 100%, DISCHARGE INSTRUCTIONS REVIEWED WITH PT AND SPOUSE BOTH VERBALIZED UNERSTANDING, IV REMOVED AND CATHETER INTACT, LEFT CHEST DRESSING C/D/I, LEFT ARM SLING INPLACE. DENIES PAIN OR NEEDS.
--- NOTE | 2020-10-01 15:45 | NUR ---
PT DISCHARGED ORDERED, PT AMBULATES HALLWAY WITHOUT PROBLEMS AND VOIDS WITHOUT DIFFICULTY, TAKEN TO FAMILY CAR VIA WHEELCHAIR
== END 2020-10-01 15:45 | disposition home or self-care (01) ==
LOC: D.CATH 10:52
PROVIDERS: ATTEND Internal Medicine Interventional Cardiology
DX: I49.5 Sick sinus syndrome (principal); I48.91 Unspecified atrial fibrillation; I25.10 Atherosclerotic heart disease of native coronary artery without angina pectoris; I10 Essential (primary) hypertension; I63.9 Cerebral infarction, unspecified